=== PATIENT | female | born 1940 | race Caucasian/White ===

== ENCOUNTER 2017-02-05 06:51 | Day surgery (SDC) | payer MEDICARE, OTHER ==
--- NOTE | ~2017-02-05 | EGD ---
EGD REPORT [facility] [address] [place] [address] NAME: DIANA FLETCHER : [birth year] STATUS : REG [facility]#: [id number] AGE: 76 ADM/REG DATE : 02/05/17 MR#: [id number] REPORT SERV DATE: 02/05/17 DICTATED BY: GRECIA SUGGS DATE: 02/05/17 REPORT STATUS : Draft TRANSCRIBED BY: [employer] DATE: 02/05/17 [facility] Patient Name: Diana Fletcher Date of : 1940 Attending MD: GRECIA SUGGS MD Procedure Date No Time: 02/05/2017 Procedure: Upper GI endoscopy Indications: Dysphagia, Heartburn, Suspected esophageal reflux, Abnormal CT of the GI tract Referring MD: GRECIA JOSEPH MD Medicines: as per anesthesia Complications: No immediate complications. Procedure: Pre-Anesthesia Assessment: - ASA Grade Assessment: II - A patient with mild systemic disease. After obtaining informed consent, the endoscope was passed under direct vision. Throughout the procedure, the patient's blood pressure, pulse, and oxygen saturations were monitored continuously. The GIF H190 [id number] was introduced through the mouth, and advanced to the body of the stomach. The upper GI endoscopy was accomplished without difficulty. The patient tolerated the procedure. Findings: The examined esophagus was normal. A large amount of food (residue) was found in the cardia, in the gastric fundus and in the gastric body. did not proceed further due to large amount of food Impression: - Normal esophagus. - A large amount of food (residue) in the stomach. Recommendation: - Low residue diet. Procedure Code(s): --- Professional --- 34006, 52, Esophagogastroduodenoscopy, flexible, transoral; diagnostic, including collection of specimen(s) by brushing or washing, when performed (separate procedure) Diagnosis Code(s): --- Professional --- R13.10, Dysphagia, unspecified R12, Heartburn R93.3, Abnormal findings on diagnostic imaging of other EGD REPORT [facility] [address] [id number] NAME: DIANA FLETCHER : [birth year] [place] [facility] [place] [id number] AGE: 76 ADM/REG DATE : 02/05/17 MR#: [id number] REPORT SERV DATE: 02/05/17 DICTATED BY: GRECIA SUGGS. DATE: 02/05/17 REPORT STATUS : Draft TRANSCRIBED BY: [employer] DATE: 02/05/17 parts of digestive tract CPT copyright 2013 [employer]. All rights reserved. The codes documented in this report are preliminary and upon asp developer review may be revised to meet current compliance requirements. GRECIA SUGGS MD 02/05/2017 8:36 AM This report has been signed electronically. Number of Addenda: 0 Note Initiated On: 02/05/2017 8:19 AM Scope Withdrawal Time 0 hours 0 minutes 0 seconds [id number] [id number]
[~2017-02-05 06:51] MED LIST: ASAB PO; BUDESONIDE PO; CENTRUM PO; CENTRUM TAB1 TAB PO; COSAMIN DS1 TAB PO; CRESTOR PO; CRESTOR5 MG PO; DIABETA5 PO; ENTOCORT3 PO; GLUCCHONDR PO; GLUCOSAMINE1 TA2 PO; GLUCOTRO10 PO; HUMALOG SC; I10 PO; KLONO5 PO; KLOR-CON 1010 MEQ PO; KLOR-CON M1010 MEQ PO; LEVEMFLXPN SC; LEVEMIR SC; MAGNESIUM OTC PO; MAGNESIUM TABLET PO; MULTIPLE VIT PO; NEUR100 PO; NEUR300 PO; PEPTO-BISMOL TA1 TAB PO; PREVPAC PO; PRILOSEC40 MG PO; PRIN20 PO; PRINZIDE PO; PROZ10 PO; QUESTRAN4 GM PO; VITAMIN D400 UNI1 PO; ZESTORETIC PO; ZESTORETIC1 TA1 PO; ZOCOR10 PO
[2017-02-05 07:24] LABS: ALBUMIN 3.6 G/DL (3.5-5.0); DIRECT BILIRUBIN 0.1 MG/DL (0.0-0.4); INDIRECT BILIRUBIN(NOT ORDER) 0.2 MG/DL (0.1-0.9); TOTAL BILIRUBIN 0.3 MG/DL (0-1.2); TOTAL PROTEIN 7.1 G/DL (6.0-8.5)
[2017-02-05 07:54] LABS: CA-19-9 35.2 U/ML (< 37.0)
== END 2017-02-05 23:59 | disposition home or self-care (01) ==
LOC: DMU 06:51
PROVIDERS: Internal Medicine Gastroenterology
PROC: 0DJ08ZZ Inspection of Upper Intestinal Tract, Via Natural or Artificial Opening Endoscopic (ICD-10-PCS; principal; 2017-02-05 08:00)
DX: K21.9 Gastro-esophageal reflux disease without esophagitis (principal); I10 Essential (primary) hypertension; E11.9 Type 2 diabetes mellitus without complications; E78.00 Pure hypercholesterolemia, unspecified; M19.90 Unspecified osteoarthritis, unspecified site; Z88.5 Allergy status to narcotic agent; Z79.4 Long term (current) use of insulin; Z79.899 Other long term (current) drug therapy; Z90.49 Acquired absence of other specified parts of digestive tract; Z90.710 Acquired absence of both cervix and uterus; Z98.41 Cataract extraction status, right eye; Z98.42 Cataract extraction status, left eye; Z98.890 Other specified postprocedural states
CPT/HCPCS: 80076; 82962; 86301; A9270-GY

== ENCOUNTER 2017-04-02 06:44 | Day surgery (SDC) | payer MEDICARE, OTHER ==
--- NOTE | ~2017-04-02 | EGD ---
EGD REPORT [facility] [address] [address] NAME: DIANA FLETCHER : [birth year] STATUS : REG [facility]#: [id number] AGE: 76 ADM/REG DATE : 04/02/17 MR#: [id number] REPORT SERV DATE: 04/02/17 DICTATED BY: GRECIA SUGGS DATE: 04/02/17 REPORT STATUS : Draft TRANSCRIBED BY: [employer] DATE: 04/02/17 Endoscopy Center Patient Name: Diana Fletcher Date of : 1940 Attending MD: GRECIA SUGGS MD Procedure Date No Time: 04/02/2017 Procedure: Upper GI endoscopy Indications: Heartburn, Suspected esophageal reflux, Abnormal CT of the GI tract, Suspected gastroparesis Referring MD: GRECIA JOSEPH MD Medicines: as per anesthesia Complications: No immediate complications. Procedure: Pre-Anesthesia Assessment: - ASA Grade Assessment: III - A patient with severe systemic disease. After obtaining informed consent, the endoscope was passed under direct vision. Throughout the procedure, the patient's blood pressure, pulse, and oxygen saturations were monitored continuously. The GIF H190 [id number] was introduced through the mouth, and advanced to the third part of duodenum. The upper GI endoscopy was accomplished without difficulty. The patient tolerated the procedure. Findings: The examined esophagus was normal. A single sessile polyp was found in the gastric antrum. Biopsies were taken with a cold forceps for histology. The cardia and gastric fundus were normal on retroflexion. The examined duodenum was normal. Impression: - Normal esophagus. - A single gastric polyp. Biopsied. - Normal examined duodenum. Recommendation: - Await pathology results. - Follow an antireflux regimen. - Continue present medications. Procedure Code(s): --- Professional --- 67293, Esophagogastroduodenoscopy, flexible, transoral; with biopsy, single or multiple Diagnosis Code(s): --- Professional --- K31.7, Polyp of stomach and duodenum EGD REPORT [facility] [address] [id number] NAME: DIANA FLETCHER : [birth year] STATUS : REG [facility] [place] PAT#: [id number] AGE: 76 ADM/REG DATE : 04/02/17 MR#: [id number] REPORT SERV DATE: 04/02/17 DICTATED BY: GRECIA SUGGS. DATE: 04/02/17 REPORT STATUS : Draft TRANSCRIBED BY: [email or web address] DATE: 04/02/17 R12, Heartburn R93.3, Abnormal findings on diagnostic imaging of other parts of digestive tract CPT copyright 2013 [employer]. All rights reserved. The codes documented in this report are preliminary and upon dinkey engineer review may be revised to meet current compliance requirements. GRECIA SUGGS MD 04/02/2017 8:42 AM This report has been signed electronically. Number of Addenda: 0 Note Initiated On: 04/02/2017 8:22 AM Scope Withdrawal Time 0 hours 0 minutes 0 seconds [address] [id number]
== END 2017-04-02 23:59 | disposition home or self-care (01) ==
LOC: DMU 06:44
PROVIDERS: Internal Medicine Gastroenterology
PROC: 0DB68ZX Excision of Stomach, Via Natural or Artificial Opening Endoscopic, Diagnostic (ICD-10-PCS; principal; 2017-04-02 08:30)
DX: K29.70 Gastritis, unspecified, without bleeding (principal); K31.7 Polyp of stomach and duodenum; R93.3 Abnormal findings on diagnostic imaging of other parts of digestive tract; I10 Essential (primary) hypertension; E78.00 Pure hypercholesterolemia, unspecified; M19.90 Unspecified osteoarthritis, unspecified site; K21.9 Gastro-esophageal reflux disease without esophagitis; K31.84 Gastroparesis; E11.9 Type 2 diabetes mellitus without complications; Z79.4 Long term (current) use of insulin; F32.9 Major depressive disorder, single episode, unspecified; Z88.5 Allergy status to narcotic agent; Z98.41 Cataract extraction status, right eye; Z98.42 Cataract extraction status, left eye; Z90.710 Acquired absence of both cervix and uterus; Z98.890 Other specified postprocedural states; Z90.49 Acquired absence of other specified parts of digestive tract
CPT/HCPCS: 82962; 88305

== ENCOUNTER 2017-05-12 07:15 | Emergency (ER) | payer MEDICARE, OTHER | END 2017-05-12 07:30 | disposition home or self-care (01) | LOC: ER 07:15 | DX: S00.93XA Contusion of unspecified part of head, initial encounter (principal); S01.01XA Laceration without foreign body of scalp, initial encounter; I10 Essential (primary) hypertension; E78.00 Pure hypercholesterolemia, unspecified; E11.9 Type 2 diabetes mellitus without complications; Z86.73 Personal history of transient ischemic attack (TIA), and cerebral infarction without residual deficits; Z90.49 Acquired absence of other specified parts of digestive tract; Z90.710 Acquired absence of both cervix and uterus; Z79.899 Other long term (current) drug therapy; Z79.4 Long term (current) use of insulin; W18.30XA Fall on same level, unspecified, initial encounter | CPT/HCPCS: 70450; 93005; 99284 ==